=== PATIENT | male | born 1960 ===

== ENCOUNTER 2023-10-13 10:29 | Outpatient (AMB) | payer OTHER, SELFPAY ==
--- NOTE | 2023-10-13 10:31 | MHC.OFFVIS ---
Vital Signs 10/13/23 10:51 Height 6 ft Weight 171 lb 8.314 oz BMI 23.3 BP 142/104 H Blood Pressure Location Lt brachial Position Sitting Pulse 90 Pulse Source Pulse Oximeter Pulse Oximetry (%) 97 Oxygen Delivery Method Room Air Intake Visit Reasons: Esophageal varices without bleeding Intake Note: Alvarez presents in office today for an initial assessment visit. CC; Pt reports that they have been suffering with GERD for many years. Pt reports that they often experience N/V with dry heaving due to their condition. Pt reports that he believes he is currently taking omeprazole which does help alleviate some sx but does not resolve them. Pt does not recall their medications currently. Pt PCP is Dr. Raúl Solomon. Shoulder Joiner Required: No Allergies No Known Allergies Allergy (Verified 10/13/23 10:45) HPI HPI Esophageal varices without bleeding: Details: 63 yr old m w hx of esophageal varices s/p banding, DVT s/p IVC filter< alcohol use, PRES here for assessment HE suffers from brain fog since admission 06/2023 for PRES he has GERD and mostly controlled he is on nadolol for varices he is on PPI and H2 macey, controls GERD no melena no dysphagia appetite is good, weight is stable Constitutional : No Weight loss, No Fever, No Chills ENT/Mouth : No sore throat, No Rhinorrhea Eyes: No Swelling, No Redness Cardiovascular : No Chest Pain, No SOB, No Edema Respiratory : No Cough, No Sputum, No Wheezing Gastrointestinal : see HPI Genitourinary : NO Dysuria, No Urinary Frequency, No Hematuria, No Urgency Musculoskeletal : + joint pain, No Myalgias, No Joint Swelling--uses walking stick due to numb feet Skin : No Skin Lesions, No rash Neuro : No Weakness, No Numbness, No Dizziness, No Headache Psych : + Anxiety/Panic, No Depression Heme/Lymph: No Bruising, No Lymphadenopathy Endocrine : No Polyuria, No Polydipsia All other systems reviewed and are negative. PMH: alcohol abuse Gram neg sepsis PRES suirgery: EGD vasectomy microdiscectomy SH: 3-4 drinks vodka, non smoker, THC gummies FH: heart disease in father and brother EXAM: GENERAL: The patient is well developed and nontoxic. VITAL SIGNS:see workflow HEENT: Nonicteric sclerae, PERRLA, EOMI. Oropharynx clear. Moist mucous membranes. Conjunctivae appear well perfused. No thyroid mass. CHEST: Chest wall is nontender. HEART: Regular rate and rhythm without murmurs. LUNGS: Clear to auscultation bilaterally. ABDOMEN: Soft, positive bowel sounds, nontender, no organomegaly.no flank tenderness SKIN: No rash, no excessive bruising, petechiae, or purpura. NEUROLOGIC: Cranial nerves II-XII intact without motor/sensory deficit. numbness feet, wide gait Psych: normal affect A/P: 1/ ?esophageal varices, 2/ alcohol abuse, not interested in stopping at this time PLAN: 1/ US liver 2/ repeat EGD--cont nadolol 3/ labs incl b12 and b1 etc replenish if low 4/ chekc hep serologies [facility] Medical History (Updated 10/13/23 @ 11:19 by Ezequiel Moody MD) Anxiety Hypertension Venous anomaly CVA (cerebral vascular accident) (~07/2023) Chronic GERD Surgical History (Updated 10/13/23 @ 10:49 by JJ Tolentino) History of lumbar surgery (Unknown) Family History (Updated 10/13/23 @ 10:50 by JJ Tolentino) Father Heart disease Brother Myocardial infarction Social History (Updated 10/13/23 @ 10:51 by JJ Tolentino) Alcohol intake: current Patient Tobacco Use Status: Never used Tobacco Substance Use Type: Marijuana Physical Exam Vital Signs: Last Vital Signs Pulse 90 10/13/23 10:51 BP 142/104 H 10/13/23 10:51 Pulse Ox 97 10/13/23 10:51 Oxygen Delivery Method Room Air 10/13/23 10:51 BMI result Body Mass Index 23.3 Assessment & Plan Assessment & Plan (1) Esophageal varices: Code(s): I85.00 - Esophageal varices without bleeding Category: Medical Plan: see above (2) Alcohol abuse: Code(s): F10.10 - Alcohol abuse, uncomplicated Category: Social Hx Plan: see above (3) Malnutrition: Code(s): E46 - Unspecified protein-calorie malnutrition Category: Medical Plan: labs Orders: Orders Hepatitis A,B,C Profile Today E46 - Unspecified protein-calorie malnutrition, F10.10 - Alcohol abuse, uncomplicated, I85.00 - Esophageal varices without bleeding Vitamin D 25-OH Total Today E46 - Unspecified protein-calorie malnutrition, F10.10 - Alcohol abuse, uncomplicated, I85.00 - Esophageal varices without bleeding Soluble Liver Ag Autoantibody Today E46 - Unspecified protein-calorie malnutrition, F10.10 - Alcohol abuse, uncomplicated, I85.00 - Esophageal varices without bleeding Liver Kidney Microsomal Ab Today E46 - Unspecified protein-calorie malnutrition, F10.10 - Alcohol abuse, uncomplicated, I85.00 - Esophageal varices without bleeding Vitamin B6 Today E46 - Unspecified protein-calorie malnutrition, F10.10 - Alcohol abuse, uncomplicated, I85.00 - Esophageal varices without bleeding US abdomen complete Today E46 - Unspecified protein-calorie malnutrition, F10.10 - Alcohol abuse, uncomplicated, I85.00 - Esophageal varices without bleeding Complete Blood Count Auto Diff Today E46 - Unspecified protein-calorie malnutrition, F10.10 - Alcohol abuse, uncomplicated, I85.00 - Esophageal varices without bleeding Comprehensive Met. Panel Today E46 - Unspecified protein-calorie malnutrition, F10.10 - Alcohol abuse, uncomplicated, I85.00 - Esophageal varices without bleeding, K75.81 - Nonalcoholic steatohepatitis (MAN) Vitamin B12 and Folate Today E46 - Unspecified protein-calorie malnutrition, F10.10 - Alcohol abuse, uncomplicated, I85.00 - Esophageal varices without bleeding Ferritin Today E46 - Unspecified protein-calorie malnutrition, F10.10 - Alcohol abuse, uncomplicated, I85.00 - Esophageal varices without bleeding Zinc Today E46 - Unspecified protein-calorie malnutrition, F10.10 - Alcohol abuse, uncomplicated, I85.00 - Esophageal varices without bleeding Mitochondrial Antibody Today E46 - Unspecified protein-calorie malnutrition, F10.10 - Alcohol abuse, uncomplicated, I85.00 - Esophageal varices without bleeding, R79.89 - Other specified abnormal findings of blood chemistry Immunoglobulin G Today E46 - Unspecified protein-calorie malnutrition, F10.10 - Alcohol abuse, uncomplicated, I85.00 - Esophageal varices without bleeding, K52.839 - Microscopic colitis, unspecified VICENTE Reflex Titer and Pattern Today E46 - Unspecified protein-calorie malnutrition, F10.10 - Alcohol abuse, uncomplicated, I85.00 - Esophageal varices without bleeding, R79.82 - Elevated C-reactive protein (CRP) Alpha 1 Anti-trypsin Today E46 - Unspecified protein-calorie malnutrition, F10.10 - Alcohol abuse, uncomplicated, I85.00 - Esophageal varices without bleeding Smooth Muscle Antibody Today E46 - Unspecified protein-calorie malnutrition, F10.10 - Alcohol abuse, uncomplicated, I85.00 - Esophageal varices without bleeding Prothrombin Time INR Today E46 - Unspecified protein-calorie malnutrition, F10.10 - Alcohol abuse, uncomplicated, I85.00 - Esophageal varices without bleeding Vitamin B1 Today E46 - Unspecified protein-calorie malnutrition, F10.10 - Alcohol abuse, uncomplicated, I85.00 - Esophageal varices without bleeding Vitamin B3 (Niacin) Today E46 - Unspecified protein-calorie malnutrition, F10.10 - Alcohol abuse, uncomplicated, I85.00 - Esophageal varices without bleeding Vitamin B5 (Pantothenic Acid) Today E46 - Unspecified protein-calorie malnutrition, F10.10 - Alcohol abuse, uncomplicated, I85.00 - Esophageal varices without bleeding Vitamin C Today E46 - Unspecified protein-calorie malnutrition, F10.10 - Alcohol abuse, uncomplicated, I85.00 - Esophageal varices without bleeding Coding Level of Care Code New Pt Level 4 (09262) Diagnoses Esophageal varices I85.00 Alcohol abuse F10.10 Malnutrition E46
[2023-10-13 10:51] VITALS: BP 142/104; PULSE 90; O2SAT 97; BMI 23.3
== END 2023-10-13 11:35 | disposition home or self-care (01) ==
PROVIDERS: PCP Nurse Practitioner Adult Health; Visit Provider Internal Medicine Gastroenterology
DX: I85.00 Esophageal varices without bleeding (principal); F10.10 Alcohol abuse, uncomplicated; E46 Unspecified protein-calorie malnutrition
CPT/HCPCS: 99204

== ENCOUNTER → 2023-10-13 10:29 | Outpatient (BNVA) | payer MEDICAID, SELFPAY | PROVIDERS: PCP Nurse Practitioner Adult Health; Visit Provider Internal Medicine Gastroenterology | DX: I85.00 Esophageal varices without bleeding (principal); E46 Unspecified protein-calorie malnutrition; F10.10 Alcohol abuse, uncomplicated | CPT/HCPCS: 99202 ==